=== PATIENT | female | born 1945 | race Caucasian/White ===

== ENCOUNTER → 2023-10-07 15:23 | Outpatient (REF) | payer OTHER, SELFPAY | LOC: HWWDC 15:23 | PROVIDERS: ATTENDING PHYSICIAN Family Medicine | DX: Z12.31 Encounter for screening mammogram for malignant neoplasm of breast (principal) | CPT/HCPCS: 77063; 77067 ==

== ENCOUNTER → 2024-03-12 12:02 | Outpatient (REF) | payer OTHER, SELFPAY | LOC: PAVMRI 12:02 | PROVIDERS: ATTENDING PHYSICIAN Physician Assistant | DX: H90.A21 Sensorineural hearing loss, unilateral, right ear, with restricted hearing on the contralateral side (principal) | CPT/HCPCS: 70553; A9575 ==

== ENCOUNTER → 2024-08-21 15:08 | Outpatient (REF) | payer OTHER, SELFPAY | LOC: RCS 15:08 | PROVIDERS: ATTENDING PHYSICIAN Nurse Practitioner Gerontology; FAMILY PHYSICIAN Nurse Practitioner Family | DX: R06.02 Shortness of breath (principal); I48.21 Permanent atrial fibrillation; I34.0 Nonrheumatic mitral (valve) insufficiency; I36.1 Nonrheumatic tricuspid (valve) insufficiency | CPT/HCPCS: 93306 ==

== ENCOUNTER → 2024-11-16 08:22 | Outpatient (REF) | payer OTHER, SELFPAY | LOC: HWRCS 08:22 | PROVIDERS: ATTENDING PHYSICIAN Internal Medicine; FAMILY PHYSICIAN Nurse Practitioner Family | DX: R06.09 Other forms of dyspnea (principal) | CPT/HCPCS: 78452; 93017; A9500; J2785 ==

== ENCOUNTER → 2024-12-03 08:18 | Outpatient (REF) | payer OTHER, SELFPAY | LOC: MRI 3T 08:18 | PROVIDERS: ATTENDING PHYSICIAN Internal Medicine Gastroenterology; FAMILY PHYSICIAN Nurse Practitioner Family | DX: K86.2 Cyst of pancreas (principal) | CPT/HCPCS: 74183; A9575 ==

== ENCOUNTER 2025-01-17 09:19 | Day surgery (SDC) | payer OTHER, SELFPAY ==
[2025-01-17 09:42] VITALS: BP 142/81
[2025-01-17 09:51] VITALS: BP 142/81
[2025-01-17 10:03] LABS: INR 1.69; PT 20.4 Sec (11.4-14.6)
[2025-01-17 10:08] VITALS: BMI 30.1
[2025-01-17 10:09] LABS: Glucose - Point of Care 89 mg/dl (70-99)
--- NOTE | 2025-01-17 11:25 | ITS.CL.CATH ---
[facility] - Catheterization
Cardiac Catheterization
Procedure Report:
RIGHT HEART CATHETERIZATION
Date of Procedure: 01/17/2025
Referring: CECY Car
INDICATION: Evidence of heart failure, cor pulmonale.
ACCESS:
5 [place] right antecubital vein using a modified Seldinger technique under ultrasound guidance.
CATHETERS:
5 [place] balloon wedge.
PROCEDURE:
The patient was prepped and draped in standard sterile fashion. The area for antecubital access was anesthetized with 1% lidocaine. The vein was identified under ultrasound and punctured with a standard access needle. A 5 Kenyan sheath was
inserted the basilic vein. A 5 Kenyan balloon wedge catheter was advanced through the sheath into the superior vena cava. An SVC oxygen saturation was drawn. The balloon wedge catheter was advanced into the pulmonary artery and a pulmonary artery
oxygen saturation was drawn. Arterial oxygen saturation was assumed from pulse oximetry. Cardiac output was calculated using the Korin equation. The PA, wedge, RV and RA pressures were measured on pullback. The balloon wedge catheter was removed.
The 5 Kenyan sheath was removed and manual pressure was held for hemostasis.
Weight (kg): 82.0
PA (s/d/x mmHg): 55/25/35
PCWP (a/v/x mmHg): 32/37/27
RV (s/x mmHg): 55/17
RA (a/v/x mmHg): 20/23/18
AO (s/d/x mmHg): 161/76/109 (non-invasive)
SVC SvO2 (%): 61.7
IVC SvO2 (%): Not obtained.
RA SvO2 (%): Not obtained.
RV SvO2 (%): Not obtained.
PA SvO2 (%): 62.2
SaO2 (%): 95.0 (assumed)
Hbg (g/dL): 13.9
Korin
CO (liters/minute): 2.74
CI (liters/minute/m2): 1.45
Thermodilution
CO (liters/minute): Not performed.
CI (liters/minute/m2): Not performed.
TPG (mmHg): 8
PVR (Weiner Units): 2.92
AVO2 Difference (Volume %): 6.20
Cardiac Power Output (martinez): 0.66 (MAP * CO)/451 (normal 0.5 - 0.7; 0.4 - 0.6 in the elderly)
Cardiac Power Index (martinez/m2): 0.35 (MAP * CI)/451
Hank: 1.67 (PAs-PAd)/RA
Radiation (mGy): 7.23
DAP (cm2.Gy): 0.9394
Fluoroscopy time (minutes): 1.4
CONCLUSION:
1. Severely elevated filling pressures (PCWP = 27 mmHg at 82.0 kg).
2. Moderate postcapillary pulmonary hypertension (mean PA = 35 mmHg, PCWP = 27 mmHg, cardiac output = 2.74 L/min, PVR = 2.92 Weiner units), WHO group 2.
3. Low normal to depressed cardiac functional parameters (cardiac index = 1.45 L/min/m�, AVO2 difference = 6.20 volume%, cardiac power output = 0.66 W, Hank = 1.67).
4. Systemic hypertension.
RECOMMENDATIONS:
1. Expectant management after right heart catheterization via right antecubital approach.
2. Increase furosemide to 80 mg twice daily.
3. Persistent symptoms may require augmentation with thiazide diuretic.
4. GDMT as hemodynamics and economics will tolerate. Per outpatient note, SGLT2 inhibitors are cost prohibitive. LVEF >40%.
5. Start valsartan 40 mg daily.
6. BMP in 1 week to monitor renal function and potassium levels.
7. Stable for outpatient follow-up.
Copy to: CECY Car, CECY Hernandez, Torito Olivia M.D.
Manolo Tilley D.O., FACC, FACP
[2025-01-17 11:36] VITALS: BP 150/77
[2025-01-17 11:50] VITALS: BP 149/76
[2025-01-17 12:05] VITALS: BP 147/76
[2025-01-17 12:21] VITALS: BP 156/83
== END 2025-01-17 12:35 | disposition home or self-care (01) ==
LOC: CATH 09:19
PROVIDERS: ATTENDING PHYSICIAN Internal Medicine Cardiovascular Disease; FAMILY PHYSICIAN Nurse Practitioner Family; OTHER PHYSICIAN Internal Medicine
DX: I11.0 Hypertensive heart disease with heart failure (principal); I27.29 Other secondary pulmonary hypertension; I27.81 Cor pulmonale (chronic); Z79.84 Long term (current) use of oral hypoglycemic drugs; Z79.899 Other long term (current) drug therapy; Z79.01 Long term (current) use of anticoagulants
CPT/HCPCS: 82962; 85610; 93451; C1769; C1894